=== PATIENT | female | born 1980 | race Caucasian/White ===

== ENCOUNTER 2018-03-02 21:09 | Emergency (ER) | payer MEDICAID ==
[~2018-03-02] VITALS: Ht 172.7 cm; Wt 53.3 kg
[~2018-03-02 21:09] MED LIST: IMITREX 25MG TA25 MG PO; NEXIUM 40MG40 MG PO; NORCO 325 MG-51 TAB PO; PROZAC 20MG20 MG PO
[2018-03-02 21:14] VITALS: BP 126/74; TEMP 97.8
[2018-03-02 21:52] LABS: COLLECTION METHOD CLEAN CATCH
[2018-03-02 22:03] LABS: MUCOUS Present /lpf; PH 5 (5-8); URINE APPEARANCE Cloudy; URINE BACTERIA Many /hpf; URINE BILIRUBIN Negative (NEGATIVE); URINE BLOOD Negative (NEGATIVE); URINE COLOR Yellow; URINE GLUCOSE Negative (NEGATIVE); URINE KETONE Negative (NEGATIVE); URINE LEUKOCYTE ESTERASE 3+ (NEGATIVE); URINE NITRATE Negative (NEGATIVE); URINE PROTEIN(semi-quant) Negative (NEGATIVE); URINE UROBILINOGEN Negative (NEGATIVE)
[2018-03-02] MEDS ORDERED: CIPRO 500MG TA500 MG PO (23:06)
[2018-03-02 23:26] VITALS: PULSE 87
== END 2018-03-02 23:26 | disposition home or self-care (01) ==
LOC: COL.ER 21:09
PROVIDERS: Physician Assistant
DX: N12 Tubulo-interstitial nephritis, not specified as acute or chronic (principal); G43.909 Migraine, unspecified, not intractable, without status migrainosus
CPT/HCPCS: J0696; J7030

== ENCOUNTER 2021-12-05 07:41 | Inpatient (IN) | payer MEDICAID ==
[~2021-12-05] VITALS: Ht 170.2 cm; Wt 75.0 kg
[~2021-12-05 07:41] MED LIST changes: +CIPRO 500MG TA500 MG PO
[2021-12-07] VITALS (47 sets, daily range): BP systolic 121–178; BP diastolic 65–105; PULSE 82–141; TEMP 97.7–98.6
--- NOTE | 2021-12-07 06:45 | NUR ---
0630 - PATIENT AMBULATES TO LDR6 ACCOMPANIED BY SPOUSE. PATIENT CHANGES INTO GOWN. 0645 - PATIENT ORIENTED TO ROOM. PLAN OF CARE DISCUSSED. PATIENT PLACED ON EFM MONITOR. VSS. ASSESSMENTS COMPLETED AND ALLERGIES REVIEWED. 0655 - CONSENTS REVIEWED AND SIGNED. IV PLACED. 0705 - LR INITIATED ORDERED. CLINDAMYCIN GIVEN PRESCRIBED. CARE ONGOING.
[2021-12-07] MEDS ORDERED: ZOFRAN8 MG PO (07:37)
[2021-12-07] MEDS ORDERED: PEPCID 20MG TAB20 MG PO (07:38)
[2021-12-07] MEDS ORDERED: PRENATAL TABLET PO (07:39)
--- NOTE | 2021-12-07 07:45 | NUR ---
0745 - [facility] TRACING INDESCERNIBLE. EFM REPOSITIONED. CARE ONGOING.
[2021-12-07 08:01] LABS: BASO # 0.1 K/mm3 (0.0-0.2); BASO % 0.5 % (0.0-2.0); EOS % 0.4 % (0.0-4.0); GRAN # 9.1 K/mm3 (1.4-6.5); GRAN % 81.5 % (42.2-75.2); LYMPH # 1.2 K/mm3 (1.2-3.4); MEAN CELL VOLUME 81 fl (80.0-100.0); MEAN CORPUSCULAR HGB CONC 30 g/dl (33.0-37.0); MEAN PLATELET VOLUME 13.8 fl (7.4-10.4); MONO # 0.6 K/mm3 (0.1-0.6); MONO % 5.6 % (1.7-9.3); PLATELET COUNT 173 K/mm3 (130-400); RED BLOOD COUNT 3.23 M/mm3 (4.10-5.30); REDCELL DISTRIBUTION WIDTH-CV 18.6 % (11.5-14.5)
[2021-12-07 08:05] LABS: HEMATOCRIT 26.2 % (37.0-47.0); HEMOGLOBIN 7.9 g/dl (12.5-16.0); MEAN CORPUSCULAR HEMOGLOBIN 24 pg (27-31)
--- NOTE | 2021-12-07 08:25 | NUR ---
0825 - PATIENT OFF MONITOR FOR BRP. 0836 - PATIENT RETURNED TO BED. BACK ON MONITOR. CARE ONGOING.
--- NOTE | 2021-12-07 08:50 | NUR ---
0850 - MD JENNIFER AT BEDSIDE. PLAN OF CARE DISCUSSED. 0852 - SVE PERFORMED BY MD JENNIFER. . 0854 - AROM PERFORMED BY MD JENNIFER. CLEAR FLUID NOTED. PITOCIN GTT CONTINUES. PATIENT REPOSITIONED. CARE ONGOING.
--- NOTE | 2021-12-07 15:35 | NUR ---
1535 - PLAN OF CARE DISCUSSED. PATIENT REPOSITIONED. SVE PERFORMED. PATIENT COMPLETE. 1536 - ROLES,MD NOTIFIED. 1544 - SHEA REMOVED. 1546 - ROLES,MD AT BEDSIDE. 1550 - PATIENT BEGINS PUSHING WITH CONTRACTIONS. GOOD MATERNAL EFFORT. 1554 - SPONTANEOUS DELIVERY BY MD OF HEAD FOLLOWED BY BODY OF GIRL. BABY TO MOTHER'S CHEST. CORD CLAMPED X2 BY MD. CORD CUT BY FATHER. CARE ASSUMED BY NURSERY RN. 8/9/9. 1617 - SPONTANEOUS DELIVERY OF INTACT PLACENTA. BLEEDING WNL. FUNDUS FIRM AT UMBILICUS. EPIDURAL OFF. PITOCIN BOLUS INITIATED. REPAIR OF BILATERAL LABIAL TEAR BY .
--- NOTE | 2021-12-07 19:45 | NUR ---
Pt able to lift and hold legs off of bed for 5 second. Pt positioned to sitting on edge of bed. Epidural catheter removed. Pt tolerated well. Tip smooth, blue, and intact. Pt able to ambulate to bathroom independently. Pt able to void 300 mL. Pericare education provided. Clean gown on. Mesh panties and pad applied. Pt transferred to room 215 by wheelchair with belongings.
[2021-12-08] VITALS: BP 138/78; PULSE 97; TEMP 98.6
[2021-12-08 04:30] VITALS: BP 133/85; PULSE 114; TEMP 98
[2021-12-08 07:00] VITALS: BP 140/89; PULSE 90; TEMP 98.2
[2021-12-08] MEDS ORDERED: TYLENOL 500MG500 MG PO (13:24)
[2021-12-08 17:20] VITALS: BP 135/91; PULSE 97; TEMP 97.9
[2021-12-08 20:00] VITALS: BP 131/70; PULSE 78; TEMP 98
[2021-12-09 07:45] VITALS: BP 141/91; PULSE 96; TEMP 98.5
[2021-12-09] MEDS ORDERED: ROXICODONE 55 MG/TAB PO ×3 (09:10→15:06)
== END 2021-12-09 13:10 | disposition home or self-care (01) | DRG 807 ==
LOC: LDR 12-06 07:40 → OB 12-07 20:30
PROVIDERS: ADMIT Obstetrics & Gynecology
PROC: 10E0XZZ Delivery of Products of Conception, External Approach (ICD-10-PCS; principal; 2021-12-07)
PROC: 3E033VJ Introduction of Other Hormone into Peripheral Vein, Percutaneous Approach (ICD-10-PCS; 2021-12-07)
PROC: 10907ZC Drainage of Amniotic Fluid, Therapeutic from Products of Conception, Via Natural or Artificial Opening (ICD-10-PCS; 2021-12-07)
PROC: 0UQMXZZ Repair Vulva, External Approach (ICD-10-PCS; 2021-12-07)
DX: O13.4 Gestational [pregnancy-induced] hypertension without significant proteinuria, complicating childbirth (principal); Z37.0 Single live birth; O99.824 Streptococcus B carrier state complicating childbirth; O70.0 First degree perineal laceration during delivery; Z3A.39 39 weeks gestation of pregnancy; Z23 Encounter for immunization
CPT/HCPCS: J2405; J2590; J7120